=== PATIENT | female | born 1965 | race Caucasian/White ===

== ENCOUNTER → 2022-01-07 | Outpatient (CLI) | payer BC, SELFPAY ==
--- NOTE | 2022-01-07 | EMB_PTH ---
PATIENT: ALDO VASQUES LOC: [facility] U#:[id number] AGE/SX: 56/F ROOM: RE01/07/[address]: Dr. Jose Carlos Alexis MD : 1965 BED: DIS: 01/07/2022 SPEC #: [id number] RECD: 01/07/22 16:39 STATUS: JOHNNIE CLAYTON #: [id number] URSZULA: 01/07/22 00:[address]: Jose Carlos Alexis DEPT: SURGICAL PATHOLOGY RECD BY: Manpreet Min Tissues: Endometrium, NOS Procedures: Surgery Specimen Level IV HEADER OPERATION: Endometrial biopsy PRE-OP DIAGNOSIS: Abnormal bleeding TISSUE SUBMITTED: Endometrial biopsy MICROSCOPIC DIAGNOSIS Endometrial biopsy: Proliferative endometrium. Fragments of benign endocervical epithelium and mucous. BEN:nacho 01/11/2022 MICROSCOPIC DESCRIPTION Slides are reviewed. GROSS DESCRIPTION Received in fixative is one container labeled with the patient's name and designated endometrial biopsy. The specimen consists of multiple fragments of hemorrhagic soft tissue mixed with mucoid tissue that in aggregate measure 3 x 2.5 x 0.3 cm. The specimen is totally submitted in one cassette. / SJ:rg 01/08/2022 TC:4 CPT: 30541
[2022-01-07 16:41] LABS: Hematocrit 30.1 % (37-47); Mean Corp Hgb Conc 29.9 g/dL (32-36); Mean Corpuscular Hgb 22.8 pg (27.0-32.0); Mean Corpuscular Volume 76.4 fL (81-99); Mean Platelet Vol. 9.9 fl (6.2-12.0); Platelet Count 423 K/mm3 (150-450); RBC Distribution Width CV 15.1 % (11.6-14.6); RBC Distribution Width SD 41.8 fl (35.1-43.9); Red Blood Count 3.94 M/mm3 (4.2-5.4); White Blood Count 8.4 K/mm3 (4.4-11.0)
[2022-01-07 17:21] LABS: Thyroid Stim Hormone (TSH) 3.24 uIU/mL (0.358-3.74)
[2022-01-09 11:24] LABS: Cancer Antigen 125 21.9 U/mL (0.0-38.1)
[2022-01-14 17:20] LABS: HPV Reflexed? NOT INDICATED
== END | disposition home or self-care (01) ==
PROVIDERS: Visit Provider Obstetrics & Gynecology
DX: Z12.4 Encounter for screening for malignant neoplasm of cervix (principal); N83.8 Other noninflammatory disorders of ovary, fallopian tube and broad ligament; N93.9 Abnormal uterine and vaginal bleeding, unspecified
CPT/HCPCS: 36415; 84443; 85027; 86304; 88175; 88305; G0145